=== PATIENT | female | born 2000 | race African-American/Black ===

== ENCOUNTER 2020-04-09 21:05 | Emergency (ER) | payer MEDICAID, SELFPAY ==
[2020-04-09 21:12] VITALS: BP 135/83; PULSE 91; RESP 20; TEMP 36.8; O2SAT 100
--- NOTE | 2020-04-09 21:25 | ED.GENADULT ---
HPI - General Adult General Chief complaint: Unspecified Stated complaint: strep? Time Seen by Provider: 04/09/20 21:19 Source: patient Mode of arrival: ambulatory Limitations: no limitations History of Present Illness HPI narrative: This is a 19-year-old female that presents the emergency department for sore throat x2 days. Also reports rhinorrhea and congestion. Reports a mild cough. Also reports a lump under her right breast that she noticed a couple of days ago that is mildly painful. Denies fever or shortness of breath. Related Data Home Medications Medication Instructions Recorded Confirmed No Home Medications 04/09/20 04/09/20 Allergies Allergy/AdvReac Type Severity Reaction Status Date / Time No Known Allergies Allergy Verified 04/09/20 21:14 Review of Systems Review of Systems: Narrative: CONSTITUTIONAL: Denies fever ENT: Reports rhinorrhea, congestion, sore throat RESPIRATORY: Reports cough. Denies dyspnea. All systems reviewed & are unremarkable except as noted in HPI and below PMFSH Past Medical History Medical History (Updated 04/09/20 @ 21:51 by Linn Reddy PA-C) No active medical problems Social History Social History (Updated 04/09/20 @ 21:47 by Linn Reddy PA-C) Smoking status: Never smoker Exam Narrative: Exam Narrative: GENERAL: Well-appearing, well-nourished, and in no acute distress. HEAD: Normocephalic, atraumatic. EYES: EOMI. ENT: Turbinates swollen and pale. Mucous membranes moist. Oropharynx with symmetric tonsillar hypertrophy, no exudate or other lesions. Uvula midline. No trismus. Bilateral TMs pearly peña non-bulging NECK: Supple. No adenopathy or masses. CHEST: Clear to auscultation. No respiratory distress. No wheezes rales or rhonchi HEART: Regular rate and rhythm. No murmur heard. Normal peripheral pulses. EXTREMITIES: Normal range of motion. No edema. SKIN: Warm, dry, no rash. NEURO: No focal deficits. Alert and oriented x3. PSYCH: Normal mood and affect BREAST: Small (1.5cm) cyst 3cm below the right nipple, mildly tender to touch Course Vital Signs Vital signs: Vital Signs Temperature 98.2 F 04/09/20 21:12 Pulse Rate 91 04/09/20 21:12 Respiratory Rate 20 04/09/20 21:12 Blood Pressure 135/83 04/09/20 21:12 Pulse Oximetry 100 04/09/20 21:12 Temperature 98.2 F 04/09/20 21:12 Pulse Rate 91 04/09/20 21:12 Respiratory Rate 20 04/09/20 21:12 Blood Pressure 135/83 04/09/20 21:12 Pulse Oximetry 100 04/09/20 21:12 Medical Decision Making MDM Narrative Medical decision making narrative: Patient presents the emergency department for sore throat x2 days. She is afebrile and nontoxic-appearing. Symmetric tonsillar hypertrophy, no evidence of peritonsillar abscess. Rapid strep is positive. Also has a small cyst on the right breast that is mildly tender to touch. Patient will be started on oral antibiotics. She will be given gynecology for follow-up. Patient was given warnings to return to the ER Vital Signs Vital Signs: Vital Signs Temperature 98.2 F 04/09/20 21:12 Pulse Rate 91 04/09/20 21:12 Respiratory Rate 04/09/20 21:12 Blood Pressure 135/83 04/09/20 21:12 Pulse Oximetry 100 04/09/20 21:12 Temperature 98.2 F 04/09/20 21:12 Pulse Rate 91 04/09/20 21:12 Respiratory Rate 04/09/20 21:12 Blood Pressure 135/83 04/09/20 21:12 Pulse Oximetry 100 04/09/20 21:12 Lab Data Labs: Strep Screen Positive Group A Strep *(Reference Range: Negative)* Critical Care Time Critical Care Time Critical Care Time: No Discharge Plan Discharge Clinical Impression: Strep pharyngitis Cyst (solitary) of breast Qualifiers: Laterality: right Qualified Code(s): N60.01 - Solitary cyst of right breast Patient Disposition: Home, Self-Care Condition: Stable Instructions: Antibiotic Form, Strep Throat (ED), Cyst (ED) Additional Instructio
[2020-04-09 22:33] VITALS: BP 122/80; PULSE 80; RESP 20; TEMP 36.8; O2SAT 99
== END 2020-04-09 22:34 | disposition home or self-care (01) ==
PROVIDERS: Emergency Provider Emergency Medicine
DX: J02.0 Streptococcal pharyngitis (principal); N60.01 Solitary cyst of right breast
CPT/HCPCS: 87880; 99283

== ENCOUNTER 2021-01-05 07:42 | Emergency (ER) | payer OTHER, SELFPAY ==
[2021-01-05 07:47] VITALS: BP 174/91; PULSE 98; RESP 20; TEMP 36.6; O2SAT 100
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
[2021-01-05 08:33] VITALS: BP 155/70; PULSE 70; RESP 12; O2SAT 99
== END 2021-01-05 08:33 | disposition home or self-care (01) ==
PROVIDERS: Emergency Provider Emergency Medicine
DX: J06.9 Acute upper respiratory infection, unspecified (principal)
CPT/HCPCS: 87081; 87880; 99283

== ENCOUNTER 2021-05-19 17:16 | Emergency (ER) | payer OTHER, SELFPAY ==
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
[2021-05-19 17:20] VITALS: BP 150/88; PULSE 105; RESP 18; TEMP 36.5; O2SAT 100
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
--- NOTE | 2021-05-19 19:10 | PC.NURSE ---
Patient still not in room at this time. It is assumed that this patient has left the ED. Room to be cleaned.
[2021-05-19 19:19] VITALS: BP 127/90; PULSE 95; RESP 18; TEMP 36.6; O2SAT 100
--- NOTE | 2021-05-19 19:20 | PC.NURSE ---
pneumatic tool operator reports that patient just came back in to the ED from the front door to go back into her room. When asked why she had left the department, patient state she needed to clear her head.
[2021-05-19] MEDS: IBUPROFEN 600 MG TABLET PO (19:21)
== END 2021-05-19 19:28 | disposition home or self-care (01) ==
PROVIDERS: Emergency Provider Emergency Medicine
DX: S00.83XA Contusion of other part of head, initial encounter (principal); Y04.2XXA Assault by strike against or bumped into by another person, initial encounter
CPT/HCPCS: 70486; 99284; A9270

== ENCOUNTER 2022-03-04 17:32 | Emergency (ER) | payer OTHER, SELFPAY ==
[2022-03-04 17:40] VITALS: BP 154/107; PULSE 95; RESP 18; TEMP 36.7; O2SAT 100
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
[2022-03-04 20:37] LABS: Appearance Urine Clear (Clear); Bilirubin Urine Negative (Negative); Color Urine Yellow (Yellow); Glucose Urine UA Negative (Negative); Ketones Urine Negative (Negative); Leukocyte Esterase Ur 1+ LEU/UL (Negative); Nitrate Urine Negative (Negative); Protein Urine Negative (Negative); Specific Grav Ur 1.025 (1.001-1.035)
[2022-03-04 20:46] LABS: Bacteria Urine Trace /hpf; Mucus Urine Rare /lpf; Squamous Epithelial Cell Urine Occasional /hpf (Few); WBC Urine 0-3 /hpf
[2022-03-04] MEDS: FLUCONAZOLE 150 MG TABLET PO (20:49)
[2022-03-04 20:56] LABS: Add Urine Microscopic? YES; Blood Urine Trace-Intact (Negative)
[2022-03-04] MEDS: DOXYCYCLINE HYCLATE 100 MG TABLET PO (21:15)
[2022-03-04] MEDS: cefTRIAXone 1 GM VIAL 0.5 GM IM (21:16)
[2022-03-04 21:46] VITALS: BP 144/91; PULSE 87; RESP 16; O2SAT 100
== END 2022-03-04 21:47 | disposition home or self-care (01) ==
PROVIDERS: Emergency Provider General Practice
DX: B37.3 Candidiasis of vulva and vagina (principal)
CPT/HCPCS: 81001; 81025; 87070; 87491; 87591; 87808; 96372; 99284; A9270; J0696

== ENCOUNTER 2022-05-21 12:31 | Emergency (ER) | payer OTHER, SELFPAY ==
[2022-05-21 12:33] VITALS: BP 135/81; PULSE 95; RESP 14; TEMP 36.7; O2SAT 98
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
== END 2022-05-21 14:10 | disposition home or self-care (01) ==
PROVIDERS: Emergency Provider Family Medicine
DX: T24.111A Burn of first degree of right thigh, initial encounter (principal); T31.0 Burns involving less than 10% of body surface; X12.XXXA Contact with other hot fluids, initial encounter
CPT/HCPCS: 99281

== ENCOUNTER 2022-08-02 09:45 | Emergency (ER) | payer OTHER, SELFPAY ==
--- NOTE | ~2022-08-02 | CT_ITS ---
EXAMINATION: CT soft tissue neck w con DATE: 08/02/2022 12:00 INDICATION: Tonsillar hypertrophy, right worse than left. TECHNIQUE: Computed tomography (CT) of the neck was performed with 75 mL Omnipaque-350 intravenous co ntrast. Automated exposure control and iterative reconstruction technique were employed. The dose-stacy gth product was 441.25 mGy-cm. COMPARISON: None FINDINGS: There is enlargement of the adenoids, lingual tonsils, and palatine tonsils. No abscess. Th ere is mild left high internal jugular chain lymphadenopathy. The cervical carotid arteries are corbin l. There is mucosal thickening in the paranasal sinuses. There is kyphosis of cervical spine. IMPRESSION: 1. Enlargement of the adenoids, lingual tonsils, and palatine tonsils. No abscess. 2. Mild high left internal jugular chain lymphadenopathy, likely reactive. Reviewed, dictated and finalized at location A. IMPRESSION: 1. Enlargement of the adenoids, lingual tonsils, and palatine tonsils. No absce ss. 2. Mild high left internal jugular chain lymphadenopathy, likely reactive.
--- NOTE | 2022-08-02 10:18 | ED.GENADULT ---
HPI - General Adult General Chief complaint: Unspecified <ELIZABETH Tong Last Filed: 08/02/22 13:53> Stated complaint: sore throat, vomiting <ELIZABETH Tong Last Filed: 08/02/22 13:53> Time Seen by Provider: 08/02/22 09:54 <ELIZABETH Tong Last Filed: 08/02/22 13:53> Source: patient <ELIZABETH Tong Last Filed: 08/02/22 13:53> Mode of arrival: ambulatory <ELIZABETH Tong Last Filed: 08/02/22 13:53> Limitations: no limitations <ELIZABETH Tong Last Filed: 08/02/22 13:53> History of Present Illness HPI narrative: Patient is a 22 y/o female who presents to the ED with c/o sore throat X 3 days. Patient reports she began to feel unwell on Friday with sore throat, cough, congestion, runny nose, headache, subjective fever. She has had strep throat in the past and states her symptoms feel similar. She also reports having nausea and vomiting last night, but denies abdominal pain, dysuria, hematuria, myalgias. She has not tried anything for her symptoms. She is vaccinated for COVID. <ELIZABETH Tong Last Filed: 08/02/22 13:53> Related Data Allergies/adverse reactions: Allergies Allergy/AdvReac Type Severity Reaction Status Date / Time No Known Allergies Allergy Verified 03/04/22 17:45 <ELIZABETH Tong Last Filed: 08/02/22 13:53> Review of Systems Review of Systems: CONSTITUTIONAL: Reports subjective fever. ENT: Reports rhinorrhea, congestion, sore throat. CARDIOVASCULAR: Denies chest pain. RESPIRATORY: Reports cough. Denies dyspnea. GASTROINTESTINAL: Reports nausea, vomiting. Denies abdominal pain or diarrhea. GENITOURINARY: Denies dysuria or hematuria. NEUROLOGIC: Reports headache. <ELIZABETH Tong Last Filed: 08/02/22 13:53> All systems reviewed & are unremarkable except as noted in HPI and below <China Cordon PA-C - Last Filed: 08/02/22 13:53> PMFSH Past Medical History Medical History: Medical History History of streptococcal sore throat <China Cordon PA-C - Last Filed: 08/02/22 13:53> Surgical History Surgical History: Surgical History No history of previous surgery <China Cordon PA-C - Last Filed: 08/02/22 13:53> Social History Social History: Social History Smoking status: Never smoker Gender identity (if verbalized by the patient): Female <China Cordon PA-C - Last Filed: 08/02/22 13:53> Exam Narrative: GENERAL: Well appearing, well-nourished, non-toxic, in no acute distress. HEAD: Normocephalic, atraumatic. EYES: PERRL/EOMI, conjunctivae clear bilaterally. NOSE: Normal, no drainage. THROAT: Pharynx clear, moderate posterior erythema, tonsillar hypertrophy, right greater than left, uvula does seem to deviate slightly towards the right. No uvula hypertrophy. No significant exudate. MMs moist. NECK: Supple. Bilateral tender anterior cervical adenopathy, R > L, no masses. RESPIRATORY: Airway patent, respirations nonlabored. Clear to auscultation bilaterally, no rales, rhonchi, wheezing. CARDIOVASCULAR: Regular rate and rhythm without murmurs, rubs, or gallops. Peripheral pulses 2+ and equal bilaterally. ABDOMINAL: Soft, nontender, nondistended, no hepatosplenomegaly. Normoactive BS. MUSCULOSKELETAL: Moves all extremities. Strength/ROM intact without gross deformities. SKIN: Warm, dry, normal color. No rashes. NEURO: A&O X3. Speech clear. Cranial nerves II-XII grossly intact. Steady gait. No ataxic movements. PSYCHIATRIC: Appropriate mood and affect. Normal interaction. <China Cordon PA-C - Last Filed: 08/02/22 13:53> Course AVIATION OPERATIONS SPECIALIST/PA Physician Supervision For this patient encounter, I reviewed the AVIATION OPERATIONS SPECIALIST
[2022-08-02 10:20] VITALS: BP 140/94; PULSE 106; RESP 18; TEMP 37.3; O2SAT 100
[2022-08-02 10:45] LABS: Basophils Percent Auto 0.3 % (0.2-1.2); Eosinophils Absolute Auto 0.3 K/mm3 (0-0.3); Eosinophils Percent Auto 1.9 % (0-4.4); Hemoglobin 12.1 g/dL (12.0-15.0); Immature Granulocyte Absolute 0.06 K/mm3 (0.00-0.031); Immature Granulocyte Percent A 0.4 % (0-0.5); Lymphocytes Absolute Auto 0.98 K/mm3 (0.9-3.2); Lymphocytes Percent Auto 6.6 % (18.3-44.2); Mean Corpuscular HGB Conc 31.8 g/dl (32-36); Mean Corpuscular Volume 84.8 fl (80-100); Mean Platelet Volume 11.1 fl (7.4-10.4); Monocytes Percent Auto 6.5 % (2.6-8.5); Neutrophils Absolute Auto 12.6 K/mm3 (1.3-6.7); Neutrophils Percent Auto 84.3 % (45.5-73.1); Platelet Count Result 303 k/mm3 (150-375); Red Blood Count 4.48 M/mm3 (4.2-5.4); White Blood Count 14.9 K/mm3 (4.5-10.0)
[2022-08-02] MEDS: SODIUM CHLORIDE 0.9% IV 1,000 ML 999 ML IV CONT (10:51)
[2022-08-02] MEDS: ONDANSETRON INJ 4 MG/2 ML VIAL IV PUSH (10:52)
[2022-08-02] MEDS: methylPREDNISolone SOD SUCC 125 MG VIAL IV PUSH (10:52)
[2022-08-02 10:54] LABS: Alanine Aminotransferase 13 U/L (6-35); Albumin Level 4.7 g/dL (3.5-5.1); Alkaline Phosphatase 63 U/L (38-126); Anion Gap 13 mmol/L (8-16); Aspartate Amino Transferase 27 U/L (14-36); Bilirubin,Total 0.6 mg/dL (0.2-1.3); Blood Urea Nitrogen 9 mg/dL (7-17); Calcium 9.1 mg/dL (8.4-10.2); Carbon Dioxide 25 mmol/L (22-30); Chloride 100 mmol/L (98-107); Estimated CRCL calculation 113 ml/min; Estimated Glomerular Filt Rate > 60; Glucose 100 mg/dL (65-110); Potassium 4.2 mmol/L (3.4-5.0); Sodium 138 mmol/L (137-145)
[2022-08-02 11:21] LABS: SARS-CoV-2 RNA PCR Negative
[2022-08-02] MEDS: AMPICILLIN SULB 3 GM/NS 100 ML 3 GM/100 ML VIAL IVPB (12:33)
== END 2022-08-02 13:06 | disposition home or self-care (01) ==
PROVIDERS: Physician Assistant; Emergency Provider Emergency Medicine
DX: J03.90 Acute tonsillitis, unspecified (principal); Z20.822 Contact with and (suspected) exposure to COVID-19
CPT/HCPCS: 36415; 70491; 80053; 81025; 85025; 87081; 87880; 96361; 96365; 96367; 96375; 99284; C9803; J0131; J0295; J2405; J2930; J7030; Q9967; U0003; U0005